=== PATIENT | female | born 1945 | race Caucasian/White ===

== ENCOUNTER 2019-07-27 08:41 | Inpatient (IN) ==
[2019-07-27] MEDS ORDERED: ASPIRIN PO ONE (08:44)
[2019-07-27 09:16] LABS: BASO# 0.01 X1000 (0.0-0.2); BASO% 0.2 % (0.0-0.8); EOS# 0.08 X1000 (0.0-0.7); EOS% 1.6 % (0.0-10.0); HEMATOCRIT 40.4 % (37.0-47.0); HEMOGLOBIN 13.3 g/dL (12.0-16.0); LYMPH# 0.79 X1000 (1.2-3.4); MCH 31.4 PG (27-31); MCHC 32.9 g/dL (33-37); MCV 95.5 FL (81-99); MONO# 0.46 X1000 (0.11-0.59); MONO% 9.3 % (1.7-9.3); MPV 12.3 FL (7.4-10.4); NEUT% 72.9 % (42.2-75.2); PLT 194 X1000 (130-400); RBC 4.23 XMIL (4.2-5.4); WBC 4.94 X1000 (4.8-10.8)
[2019-07-27 09:31] LABS: ALBUMIN 4.3 g/dL (3.5-5.0); CALCIUM 10.1 mg/dL (8.8-10.2); CREATININE 1.3 mg/dL (0.5-0.9); INR 1.37; POTASSIUM 4.1 mmol/L (3.5-5.1); PROTIME 17.6 Seconds (11.0-16.0); TOTAL BILIRUBIN 0.6 mg/dL (0.20-1.00); TOTAL PROTEIN 6.8 g/dL (6.3-8.3)
[2019-07-27 09:32] LABS: PTT 33.1 Seconds (22.3-41.8)
--- NOTE | 2019-07-27 10:35 | Diag Imaging Result Doc PS360 ---
CHEST-2 VIEWS - 07/27/2019 INDICATION: heart racing COMPARISON: 03/28/2015 FINDINGS: Heart size is borderline enlarged. Pulmonary vascularity is normal. No infiltrates or edema. No pneumothorax or pleural effusion. IMPRESSION: Borderline cardiomegaly. Electronically signed by Renny Zhou 07/27/2019 10:33 AM
[2019-07-27] MEDS: ELIQUIS PO SCH ×2 (10:45→20:43)
--- NOTE | 2019-07-27 11:34 | HISTORY AND PHYSICAL ---
CHIEF COMPLAINT: Shortness of breath and palpitations. HISTORY OF PRESENT ILLNESS: Ms. Kennedy is a 73-year-old female who has a history of paroxysmal atrial fibrillation and who woke up at 4 a.m. this morning with dyspnea and palpitations after which she was brought into the emergency room for further evaluation. She is currently comfortable and denies having any other issues. PAST MEDICAL HISTORY: 1. Paroxysmal atrial fibrillation. 2. Hypertension. 3. Dyslipidemia. 4. Hypothyroidism. 5. Obesity. PAST SURGICAL HISTORY: 1. Tonsillectomy. 2. History of embolectomy from right femoral artery after having an ischemic right lower extremity, by Dr. Cody. SOCIAL HISTORY: Patient denies any alcohol or tobacco use. She is retired and lives here in [place]. FAMILY HISTORY: Noncontributory. ALLERGIES: The patient reports to be allergic to bacitracin, neomycin, and polymyxin. CURRENT HOME MEDICATIONS: 1. Apixaban 5 mg orally twice daily. 2. Hydrochlorothiazide 12.5 mg orally once daily. 3. Levothyroxine 88 mcg orally once daily. 4. Lisinopril 10 mg orally once daily. 5. Metoprolol ER 25 mg half tablet orally once daily. REVIEW OF SYSTEMS: A full 14-point review of systems was obtained, that was pretty much the same as already has been explained in the HPI. PHYSICAL EXAMINATION: VITAL SIGNS: Temperature 98 degrees Fahrenheit, pulse 112 per minute, respiratory rate 19 per minute, blood pressure 132/110, pulse oximetry 99% on room air. GENERAL: The patient is alert and oriented x3. She does not appear to be in any acute distress. HEENT: Within normal limits. NECK: Supple, without any thyromegaly. LYMPHATICS: No lymphadenopathy noted in the neck region. CHEST: Chest wall is nontender. CARDIOVASCULAR SYSTEM: First and second heart sounds are audible without any murmurs or gallops. RESPIRATORY SYSTEM: Bilateral lung air entry is good without any rales or rhonchi. GASTROINTESTINAL SYSTEM: Abdomen is soft and nondistended. No viscera are palpable and normal bowel sounds are present. NEUROLOGIC: No focal deficits are present. : Deferred. INTEGUMENTARY: Skin is warm, dry, and without any rash. MUSCULOSKELETAL SYSTEM: No deformities are present. Range of motion in most of the joints somewhat limited secondary to osteoarthritis. DIAGNOSTIC DATA: CBC is nondiagnostic. PT and PTT are also nondiagnostic. Comprehensive metabolic panel showed creatinine of 1.3 and glucose levels of 110. Rest of the comprehensive metabolic panel was found to be nondiagnostic. ProBNP was elevated at 1895 and troponin levels were found to be negative. Magnesium levels were found to be normal at 1.8. TSH was slightly elevated at 6.89. Chest x-ray obtained at the emergency room showed borderline cardiomegaly. IMPRESSION: 1. Paroxysmal atrial fibrillation with rapid ventricular response. 2. Dyspnea secondary to #1. 3. History of hypertension and dyslipidemia, along with hypothyroidism. PLAN: The patient will be admitted to the intensive care unit here at [facility] and will be initiated on IV diltiazem drip. We are going to continue with routine home medications and repeat the cardiac enzymes to rule out acute myocardial ischemic event. We are going to obtain a cardiology consult for further evaluation and provide her supportive care. Further recommendations will be given as per outcome of these measures. cc: Spenser Lopez MD
[2019-07-27] MEDS ORDERED: CARDIZEM ONE (12:57)
[2019-07-27] MEDS: CARDIZEM PO SCH ×3 (13:02→20:43)
[2019-07-27] MEDS ORDERED: CARDIZEM 100 MG/NS 100 MG/100 ML IVPB IV SCH (13:08)
--- NOTE | 2019-07-27 13:50 | EKG Report ---
Test Performed on : 07/27/2019 08:50:00 AM Test Reason : heart racing Blood Pressure : / mmHG Vent. Rate : 131 BPM Atrial Rate : 119 BPM P-R Int : 000 ms QRS Dur : 096 ms QT Int : 324 ms P-R-T Axes : 000 003 -68 degrees QTc Int : 478 ms Atrial fibrillation. with rapid ventricular response. with premature ventricular or aberrantly conduc dionicio complexes. ST & T wave abnormality, consider lateral ischemia Abnormal ECG When compared with ECG of 09-FEB-2017 10:12, No significant change was found Unconfirmed Result
[2019-07-27] MEDS ORDERED: CARDIZEM 125 MG/D5W 125 MG/125 ML IVPB IV SCH (15:00)
[2019-07-27] MEDS: LANOXIN PO SCH ×2 (17:56→22:46)
--- NOTE | 2019-07-27 18:20 | CARDIOLOGY CONSULTATION ---
DATE: 07/27/2019 REQUESTING PHYSICIAN: Dr. Lopez in the hospital service for [facility]. CHIEF COMPLAINT: Palpitations, shortness of breath, and slight chest pain. HISTORY: Ms. Kennedy is a pleasant 73-year-old female who presented to this hospital early in the morning about of 4:00 or 5:00 in the morning with complaints of sudden onset of shortness of breath that woke her up from her sleep associated with palpitations and slight pain on top of the left anterior chest. The patient acknowledged that it felt like her atrial fibrillation acting up, however, this time the shortness of breath and the pain were unusual and she got concerned. She presented to the ER. They did a chest x-ray that showed borderline cardiomegaly. No significant pulmonary congestion. EKG showed atrial fibrillation with rapid response. There are no definite ischemic ST/T changes noted. The first EKG showed a heart rate of 131 beats per minute with PVCs and diffuse ST-T abnormality. The subsequent one done a couple of hours later at 1:12 p.m. shows atrial fibrillation with a better controlled response, still nonspecific ST abnormality. The patient at this time is in the ICU at [facility] and feeling somewhat more comfortably. They had issues accessing her veins in the arms, and she was a little shaky and nervous about it. She gets upset when they have to poke her many times to find an IV. She says that for the past couple of months she has noticed a progressive decline in her functional capacity. On Sunday evening, which was July 25, a friend called her from her sabianism and asked her to help organizing a meal for 30 people that were going to attend a on July 26. She said that she clearly did more than what she normally does, and that day she felt extremely exhausted. She went to bed at 6 p.m. on July 26, very tired. She had not had anything to eat or drink since 3 p.m. She denies feeling nauseous. Denies having cough. Denies having fever. Denies having swelling of the legs or pain in the legs. PAST HISTORY: Positive for paroxysmal atrial fibrillation. First time happened in 2012. Subsequently, she presented to [facility] in March 2015 with pain and pallor involving both legs. At that time, she had suffered bilateral peripheral embolization in both legs from atrial fibrillation. That was successfully resolved by Dr. Eben Cody and Dr. Ramos, who operated on her. They performed exploration of right femoral artery, common and profunda and superficial via right common femoral arteriotomy and external iliac embolectomy and distal superficial and popliteal embolectomy. That took care of the ischemic leg, and since then she has been anticoagulated with Eliquis. The patient had been following with [facility]qu[facility]. However, since Dr. Taylor moved out to [place], she has not seen a quality system manager at least for the past 3 years. She had been under the care of Dr. Morris, and the last time she saw her was 6 months ago. Nevertheless, the patient has been taking her medications. The patient was affected by herpes zoster involving the head and the left eye a couple of years ago, and since then she has been taking acyclovir for it. SURGICAL HISTORY: She had tonsillectomy. She has had the bilateral leg embolectomy in 2014, and she has had also bilateral cataract surgery. FAMILY HISTORY: Father suddenly at age 83, and mother at the age of 56. REVIEW OF SYSTEMS: Basically positive for the fact that she has been feeling increasingly dyspneic for the past couple of months. She does have chronic paroxysmal palpitations. She acknowledges it is her atrial fibrillation, and she does not get excited about it. She has gradually gained weight over the past couple of years. Her weight is up to 232 pounds with a BMI of 34. HOME MEDICATIONS: Listed at the time of this admission included acyclovir 400 mg at bedtime, apixaban 5 mg twice a day, Benadryl 25 mg at bedtime, hydrochlorothiazide 12.5 daily, Synthroid 88 mcg daily, lisinopril 10 mg daily, metoprolol ER 50 mg twice a day. SOCIAL HISTORY: She is a . in the year 1999. She has 2 grown-up children. One of them was present in the room with her. PHYSICAL EXAMINATION: Vital Signs: Blood pressure is 125/88, temperature 98 degrees, pulse 89, respirations 22. Awake, alert, oriented, in no distress. She does not appear to be ill. Well- developed female, no distress. HEENT: Unremarkable. Chest: Sounds clear to auscultation and percussion. Heart: Sounds are irregularly irregular without gallop or murmur. Abdomen: Soft, nontender. Extremities: Show good pulses. No peripheral edema. Neurological: She follows commands. Moves 4 extremities. LABORATORY DATA: Hemoglobin is 13.3, platelet count 194,000. PT is 17.6. INR is 1.37, PTT 33.1. Sodium 142, potassium 4.1, BUN 19, creatinine 1.3. ProBNP level is 1895 pg/mL. Two troponin levels were checked, one at 9 a.m. and the other one at 1:21 p.m.; both are negative. IMPRESSION: 1. Patient who presents with paroxysmal atrial fibrillation, symptomatic with dyspnea. The patient probably has a mild degree of diastolic heart failure based on elevation of pro BNP. 2. History of hypertension. 3. 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 4. Obesity. 5. H/O Peripheral arterial embolization in the past. 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 RECOMMENDATION: At this time, we will try to work on controlling her heart rate with digoxin, Cardizem, and beta blockers. We will keep her on Eliquis. We will get an echocardiogram. After she converts, we will arrange for a follow-up at the office. We will obtain an outpatient stress test. At this time, no further intervention appears to be necessary. We will see how she does overnight. Because she has a very difficult venous access and her heart rate is controlled, we will forego putting an IV for the time being unless her heart rate really jumps into the 100s or greater. FOLLOW-UP: We will follow the patient up during this admission. cc: MD TAWANA Aburto
[2019-07-27] MEDS ORDERED: TYLENOL PO PRN (18:38)
[2019-07-27 20:38] LABS: BILIRUBIN URINE NEGATIVE (NEGATIVE); BLOOD URINE NEGATIVE (NEGATIVE); CLARITY CLEAR (CLEAR); COLOR YELLOW; GLUCOSE URINE NEGATIVE (NEGATIVE); KETONE URINE NEGATIVE (NEGATIVE); LEUKOCYTES URINE NEGATIVE (NEGATIVE); NITRITE URINE NEGATIVE (NEGATIVE); PROTEIN URINE NEGATIVE (NEGATIVE); UROBILINOGEN URINE NORMAL
[2019-07-27 20:39] LABS: URINE BACTERIA NEGATIVE /HFP; URINE CAST NONE SEEN /LPF; URINE CRYSTAL NONE SEEN /HPF; URINE EPITHELIAL CELLS >10 /HPF (<10); URINE RBC <10 /HPF (<10); URINE SOURCE CLEAN CATCH; URINE WBC <10 /HPF (<10); URINE YEAST NONE SEEN /HPF
[2019-07-27] MEDS: TOPROL XL PO SCH (20:43)
[2019-07-28] MEDS: CARDIZEM PO SCH ×4 (06:12→19:56)
[2019-07-28] MEDS: LANOXIN PO SCH (06:13)
[2019-07-28] MEDS: PATIENT'S OWN MED PO SCH (06:13)
--- NOTE | 2019-07-28 06:26 | EKG Report ---
Test Performed on : 07/28/2019 05:52:12 AM Test Reason : Afib with RVR Blood Pressure : / mmHG Vent. Rate : 077 BPM Atrial Rate : 094 BPM P-R Int : 000 ms QRS Dur : 092 ms QT Int : 416 ms P-R-T Axes : 000 013 093 degrees QTc Int : 470 ms Atrial fibrillation. Abnormal QRS-T angle, consider primary T wave abnormality Abnormal ECG When compared with ECG of 27-JUL-2019 13:12, (Unconfirmed) Nonspecific T wave abnormality no longer evident in Inferior leads Nonspecific T wave abnormality, improved in Lateral leads Unconfirmed Result
[2019-07-28 06:33] LABS: HEMATOCRIT 39.2 % (37.0-47.0); HEMOGLOBIN 12.3 g/dL (12.0-16.0); MCH 30.5 PG (27-31); MCHC 31.4 g/dL (33-37); MCV 97.3 FL (81-99); MPV 12.8 FL (7.4-10.4); RBC 4.03 XMIL (4.2-5.4); WBC 3.58 X1000 (4.8-10.8)
[2019-07-28 07:04] LABS: CREATININE 1.2 mg/dL (0.5-0.9); MAGNESIUM 1.8 mg/dL (1.5-2.7)
--- NOTE | 2019-07-28 07:53 | EKG Report ---
Test Performed on : 07/27/2019 1:12:49 PM Test Reason : ER Blood Pressure : / mmHG Vent. Rate : 111 BPM Atrial Rate : 131 BPM P-R Int : 000 ms QRS Dur : 094 ms QT Int : 346 ms P-R-T Axes : 000 -09 125 degrees QTc Int : 470 ms Atrial fibrillation. with rapid ventricular response. Possible Anterior infarct , age undetermined Abnormal ECG When compared with ECG of 27-JUL-2019 08:50, (Unconfirmed) No significant change was found Unconfirmed Result
[2019-07-28] MEDS ORDERED: ZOVIRAX PO SCH (09:00)
[2019-07-28] MEDS: HYDROCHLOROTHIAZIDE PO SCH (10:04)
[2019-07-28] MEDS: ELIQUIS PO SCH ×2 (10:04→19:59)
[2019-07-28] MEDS: TOPROL XL PO SCH ×2 (10:04→20:00)
[2019-07-28] MEDS: PRINIVIL PO SCH (10:04)
[2019-07-28] MEDS: NS 1,000 ML IV SCH ×2 (19:54→19:55)
--- NOTE | 2019-07-28 21:49 | PROGRESS NOTE ---
DATE: 07/28/2019 SUBJECTIVE: Patient notes that she is feeling a lot better. She has had no palpitations. She is currently eating breakfast. Denies any shortness of breath. PHYSICAL: Temperature 97.4, pulse 62, BP 107/75.General: Patient is awake, alert, currently in no distress. HEENT: Normocephalic. Neck: Supple. CV: Irregular rate with atrial fibrillation. Chest: Clear, nonlabored. Abdomen: Soft. Extremities: Moves all extremities. ASSESSMENT: 1. Paroxysmal atrial fibrillation. She had rapid ventricular response. Her medications have been adjusted. Currently she is off the Cardizem drip and her rate is controlled. We are going to move her to the floor allow her to ambulate and see how she does. Hopefully she can discharge home tomorrow if she tolerates ambulation. 2. Hypothyroidism. Going to recheck her TSH and if elevated should consider treatment. 3. Hypertension. 4. Dyslipidemia. cc: Samson Warren MD
[2019-07-29] MEDS: CARDIZEM PO SCH ×3 (04:34→10:23)
[2019-07-29] MEDS: PATIENT'S OWN MED PO SCH ×2 (05:54→09:05)
--- NOTE | 2019-07-29 07:20 | ECHO REPORT ---
ORDER DATE: 07/28/2019 MEASUREMENTS: Left ventricular internal diameter in diastole 5.5, septal thickness 1.3, posterior wall thickness 0.7, aortic root 2.6, left atrium 4.8. SUMMARY: 1. Technically difficult study due to limited acoustic window quality. 2. Aortic valve is trileaflet and opens normally on 2-dimensional images. Peak gradient across the aortic valve is less than 10 mmHg. Focal thickening and sclerosis of posterior mitral leaflet demonstrated. Mitral valve opening is adequate. There is moderate mitral regurgitation. Tricuspid and pulmonic valves are without evidence of structural abnormality, with [id number] tricuspid regurgitation and trace pulmonic insufficiency. The estimated systolic PA pressure by Doppler is 40 mmHg, suggesting mild pulmonary hypertension. The aortic root is normal in size. 3. Normal left ventricular dimensions suggested on 2-dimensional images. Estimated left ventricular ejection fraction is approximately 40%. Hypokinesis of the basal and mid anteroseptal region of the left ventricle is demonstrated. Moderate biatrial enlargement is demonstrated. Right ventricle is normal in size with grossly preserved right ventricular systolic function. 4. No pericardial effusion. 5. The appearance of the inferior vena cava suggests normal central venous pressure. 6. Atrial fibrillation during study. cc: MD Tal Arceo MD
[2019-07-29] MEDS: NS 1,000 ML IV SCH (09:05)
[2019-07-29] MEDS: TOPROL XL PO SCH (09:05)
[2019-07-29] MEDS: PRINIVIL PO SCH (09:05)
[2019-07-29] MEDS: HYDROCHLOROTHIAZIDE PO SCH (09:06)
[2019-07-29] MEDS: ELIQUIS PO SCH (09:06)
[2019-07-29 09:54] LABS: HEMATOCRIT 40.4 % (37.0-47.0); HEMOGLOBIN 12.9 g/dL (12.0-16.0); MCH 30.5 PG (27-31); MCHC 31.9 g/dL (33-37); MCV 95.5 FL (81-99); MPV 12.6 FL (7.4-10.4); RBC 4.23 XMIL (4.2-5.4); RDW 13.8 % (11.5-14.5); WBC 3.92 X1000 (4.8-10.8)
[2019-07-29 11:02] LABS: ALBUMIN 4.1 g/dL (3.5-5.0); CALCIUM 10.3 mg/dL (8.8-10.2); CREATININE 1.1 mg/dL (0.5-0.9); POTASSIUM 4.1 mmol/L (3.5-5.1); TOTAL BILIRUBIN 0.7 mg/dL (0.20-1.00); TOTAL PROTEIN 6.5 g/dL (6.3-8.3)
[2019-07-29 12:03] VITALS: BP 111/77
--- NOTE | 2019-07-30 09:05 | DISCHARGE SUMMARY ---
ADMISSION DATE: 07/27/2019 DISCHARGE DATE: 07/29/2019 HOSPITAL COURSE: The patient is seen the day of discharge. She is very well. She is ambulating without difficulty. She is still sinus rhythm. No major complaints. She will be discharged today on Cardizem. She is already on Eliquis, and we will set her up to follow up with Dr. Coronado. They recommended an outpatient stress test, so we will most likely need to set that up too because she does have some wall motion abnormalities on her echo release hypokinesis. EF is on the bare low normal of depressed ejection fraction. This is a djuu-ve-flsy encounter note with HARSHIL Austin. cc: Renaldo Restrepo MD
--- NOTE | 2019-07-30 09:44 | DISCHARGE SUMMARY ---
ADMISSION DATE: 07/27/2019 DISCHARGE DATE: 07/29/2019 PRIMARY CARE PHYSICIAN: None. ADMISSION DIAGNOSES: 1. Paroxysmal atrial fibrillation with rapid ventricular response. 2. Dyspnea secondary to #1. 3. History of hypertension and dyslipidemia along with hypothyroidism. DISCHARGE DIAGNOSES: 1. Paroxysmal atrial fibrillation now rate controlled. 2. Hypothyroidism. 3. Hypertension. 4. Dyslipidemia. SUMMARY OF FINDINGS: This is a 73-year-old female who has a history of paroxysmal atrial fibrillation, woke up around 4 a.m. on the morning of arrival with dyspnea and palpitations. When she got to the emergency room, she was noted to have an EKG with atrial fibrillation with RVR at 131, was admitted to the intensive care unit on a Cardizem drip initially. We consulted Cardiology. We did an echocardiogram. Her estimated ejection fraction was 40%. She was weaned off of the Cardizem drip and was placed on p.o. Cardizem and was transferred out to the floor. She has done well has remained rate controlled and it is now felt that she could safely be discharged home. DISCHARGE MEDICATIONS: Include Zovirax 400 mg p.o. at bedtime, Eliquis 5 mg p.o. b.i.d., Cardizem CD 120 mg p.o. daily, Benadryl 25 mg p.o. at bedtime, hydrochlorothiazide 12.5 mg p.o. daily, Synthroid 88 mcg p.o. daily, lisinopril 10 mg p.o. daily and Metoprolol 50 mg p.o. b.i.d. FOLLOWUP: She will have a followup with Dr. Coronado, Cardiology, on 09/01/2019 at 11 a.m. DISCHARGE INSTRUCTIONS: All discharge instructions were reviewed with the patient and she verbalized understanding. TIME SPENT: This is a 35 minute discharge. Dictated by HARSHIL Austin for Renaldo Restrepo MD cc: HARSHIL Austin MD Luis N. Villanueva, MD
--- NOTE | 2019-08-12 01:04 | PROVIDER DOCUMENTATION ---
This chart was entered by Destinee Jacinto Scribe, acting as scribe for Ricardo Kearns MD. HPI-Cardiac General - General Chief Complaint: Palpitations Stated Complaint: PALPITATIONS Time Seen by Provider: 07/27/19 09:12 Source: patient Allergies/Adverse Reactions: Patient Allergies Allergy/AdvReac Type Severity Reaction Status Date / Time bacitracin AdvReac RASH Verified 07/27/19 09:11 [From Neosporin ([id number])] bacitracin zinc * AdvReac RASH Verified 07/27/19 09:11 [From Neosporin ([id number])] neomycin sulfate * AdvReac RASH Verified 07/27/19 09:11 [From Neosporin ([id number])] polymyxin B AdvReac RASH Verified 07/27/19 09:11 [From Neosporin ([id number])] fillers Allergy Unknown Uncoded 07/27/19 10:57 Home Medications: Home Medication List Medication Instructions Recorded Confirmed Last Taken Type Levothyroxine [Synthroid] 88 microgm PO DAILY 09/28/13 07/27/19 07/27/19 07:15 History Diphenhydramine [Benadryl] 25 mg PO QHS 03/28/15 07/27/19 07/26/19 History Lisinopril 10 mg PO DAILY #30 04/08/15 07/27/19 07/27/19 07:15 Rx Apixaban [Eliquis] 5 mg PO BID 02/09/17 07/27/19 07/27/19 07:15 History 0715 Hydrochlorothiazide 12.5 mg PO DAILY 02/09/17 07/27/19 07/27/19 07:15 History Acyclovir [Zovirax] 400 mg PO QHS 07/27/19 07/27/19 07/26/19 History Metoprolol Succinate E.r. [Toprol 50 mg PO BID 07/27/19 07/27/19 07/27/19 07:15 History Xl] Diltiazem C.d. 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 The patient states she has had episodes of heart pounding with afib previously but this is more of a flutter. She also states she has been excessively tired the past six months having to rest frequen tly with daily activities or simply walking. Quality of Pain: reports: tightness Onset/Duration: this morning (0400) Timing: still present Context/Activities at Onset: reports: sleep Modifying Factors: improves with: nothing Palpitation Quality: irregular History of arrythmia: reports: A-Fib Recent use of:: reports: no stimulants Associated Symptoms: reports: shortness of breath. denies: nausea, vomiting Similar Symptoms Previously?: Yes Recently Seen Here or By Another Healthcare Provider: No Review of Systems - Adult - REVIEW OF SYSTEMS - ADULT Constitutional: reports: fatique. denies: chills, fever Eyes: reports: no symptoms reported Ears, Nose, Mouth & Throat: reports: no symptoms reported Cardiovascular: reports: chest pain (tightness), palpitations, other (history of afib). denies: syncope Respiratory: reports: dyspnea on exertion, shortness of breath. denies: hemoptysis, wheezing Gastrointestinal: denies: diarrhea, nausea, vomiting Genitourinary: reports: no symptoms reported Musculoskeletal: reports: no symptoms reported Integumentary: reports: no symptoms reported Neurological: reports: no symptoms reported Psychiatric: reports: no symptoms reported Endocrine: reports: no symptoms reported Hematologic/Lymphatic: reports: no symptoms reported Allergic/Immunologic: reports: no symptoms reported All Other Systems: Reviewed and Negative Past History - Adult - PAST MEDICAL HISTORY-ADULT Review of Records: reports: Old Records Reviewed, Nursing Assessment Review, Medications Reviewed Major Childhood Illnesses: reports: denies history Cardiovascular: reports: A-Fib, HTN, hyperlipidemia Respiratory: reports: denies history Gastrointestinal: reports: GERD Obstetrical/Gynecological: reports: denies history Genitourinary: reports: denies history Musculoskeletal: reports: denies history Neurological: reports: denies history Endocrine/Immune: reports: cancer (skin), thyroid disorder Other Conditions: reports: denies history - PRIOR SURGERIES/PROCEDURES Surgical/Procedure History: reports: none - IMMUNIZATION STATUS Childhood Immunizations: See Nurse Assessment Flu Vaccine: See Nurse Assessment - FAMILY HISTORY Family History: reviewed, not pertinent - SOCIAL HISTORY Smoking: non-smoker Physical Exam-General - PHYSICAL EXAM-ADULT Initial Vital Signs Reviewed: Yes - CONSTITUTIONAL General Appearance: alert, no apparent distress - HEAD, EARS, NOSE, MOUTH & THROAT HENMT: normocephalic/atraumatic - NECK Neck: full range of motion, supple - RESPIRATORY Respiratory: lungs clear, normal breath sounds. negative: rales, rhonchi, wheezing - CARDIOVASCULAR Cardiovascular: no gallop, tachycardia, other (bilateral leg edema) - MUSCULOSKELETAL Back Exam: other. negative: swelling Extremity: pedal edema (bilateral). negative: pulse deficit - SKIN Integumentary: normal color, warm/dry. negative: diaphoresis - NEUROLOGIC Neurologic: grossly normal - HEART Score HEART Score: History: Slightly Suspicious HEART Score: ECG: Non-Specific Repolarization Disturbance/LBBB/PM HEART Score: Age: > or = 65 Years HEART Score: Risk Factors for Atherosclerotic Disease: 1 or 2 Risk Factors HEART Score: Troponin: < or = Normal Limit Total HEART Score:: 4 Progress - PLAN OF CARE/RESULTS Progress/Plan/Lab Results: Orders Category Date Time Status Admit - [facility] Routine [id number] 07/27/19 10:44 Active Cardiac Monitoring DIRECTED Care 07/27/19 08:44 Completed Nursing [Misc. NRSG Communication Order] DIRECTED Care 07/27/19 12:26 Completed Nursing- MD Consult Request ROUTINE Care 07/27/19 13:08 Completed Saline Loc NOW Care 07/27/19 08:44 Completed Physician/Provider Consults Routine Cons 07/27/19 13:08 Ordered CHEST-2 VIEWS [RAD] Stat Exams 07/27/19 08:44 Completed CBC WITH ELECTRONIC DIFF [HEME] Stat Lab 07/27/19 09:00 Completed CK PROFILE [SP CHEM] Stat Lab 07/27/19 09:00 Completed COMPREHENSIVE METABOLIC PANEL [CHEM] Stat Lab 07/27/19 09:00 Completed MAGNESIUM [CHEM] Stat Lab 07/27/19 09:10 Completed PRO B-NATRIURETIC PEPTIDE Stat Lab 07/27/19 09:00 Completed PROTIME WITH INR [COAG] Stat Lab 07/27/19 09:00 Completed PTT [COAG] Stat Lab 07/27/19 09:00 Completed TROPONIN T Stat Lab 07/27/19 09:00 Completed TROPONIN T Urgent Lab 07/27/19 13:21 Completed TSH Stat Lab 07/27/19 09:10 Completed 0.9% Sodium Chloride Inj [Ns] 1,000 ml Med 07/27/19 13:08 Discontinued IV 75 mls/hr Acyclovir [Zovirax] Med 07/28/19 09:00 Discontinued 400 mg PO DAILY Apixaban [Eliquis] Med 07/27/19 10:45 Discontinued 5 mg PO BID Aspirin Med 07/27/19 08:44 Discontinued 325 mg PO NOW ONE Diltiazem 100 mg/Ns [Cardizem 100 mg/Ns] Med 07/27/19 13:08 Discontinued 100 mg in 100 ml IV As Directed mls/hr Diltiazem [Cardizem] Med 07/27/19 12:57 Discontinued 30 mg .ROUTE .STK-MED ONE Diltiazem [Cardizem] Med 07/27/19 14:00 Discontinued 30 mg PO Q6HR Hydrochlorothiazide Med 07/28/19 09:00 Discontinued 12.5 mg PO DAILY LISINOpril [Prinivil] Med 07/28/19 09:00 Discontinued 10 mg PO DAILY Metoprolol Succinate E.r. [Toprol Xl] Med 07/27/19 21:00 Discontinued 50 mg PO BID Patient's Own Med Med 07/28/19 07:00 Discontinued 1 each PO DAILY@0700 EKG [EKG] Routine Ther 07/28/19 06:00 Draft EKG [EKG] Stat Ther 07/27/19 08:44 Draft Transfer/Admit Order [TRANSFER] Routine Transfer 07/27/19 10:47 Completed Result Diagrams: 07/29/19 09:00 07/29/19 09:00 - EKG 1 Time of EKG reading by physician:: 08:50 EKG Read and Signed by:: Ricardo Kearns EKG Interpretation (*Must complete 3 of following elements*): Abnormal Rate: 131 Rhythm: afib w/ RVR with premature ventricular or aberrantly conducted complexes Comments: ST and T wave abnormality consider lateral ischemia 2 Time of EKG reading by physician:: 13:12 EKG Read and Signed by:: Ricardo Kearns EKG Interpretation (*Must complete 3 of following elements*): Abnormal Rate: 111 Rhythm: afib w/RVR Comments: possible anterior infarct age undetermined - XRAY 1 XRAY Study: Chest (CHEST-2 VIEWS - 07/27/2019 INDICATION: heart racing COMPARISON: 03/28/2015 FINDINGS: Heart size is borderline enlarged. Pulmonary vascularity is normal. No infiltrates or edema. No pneumothorax or pleural effusion. IMPRESSION: Borderline cardiomegaly. Electronically signed by Renny Zhou 07/27/2019 10:33 AM) - CONSULTS/PCP/HOSPITALIST Notification #1 *Consult/PCP/Hospitalist*: Dr. Lopez Time Discussed: 10:15 Reason/Comments: heart failure Consult Disposition: Admit Departure - Departure Date of Disposition Decision: 07/27/19 Time of Disposition Decision: 10:35 DIAGNOSIS: Paroxysmal A-fib, CHF (congestive heart failure) Disposition: ADMITTED INPATIENT 09 Certified Medical Emergency: Urgent Condition: Stable - Critical Care Note This patient required my direct & personal management of CC.: No Attestation - Physician/ SHARATH Attestation Patient care was provided by Advanced Practice Provider:: No The physician spent face to face time with patient:: Yes Advanced Practice Provider documentation review:: Supervising physician onsite and consulted in the evaluation and care of this patient. The physician did have a face to face encounter with the patient. This chart was documented by the indicated scribe, (Destinee Jacinto, Apoorva) and accurately reflects the services I performed and decisions made by me, Ricardo Kearns MD, as attested by the provider's signature.
== END 2019-07-29 13:45 | disposition home or self-care (01) | DRG 309 ==
LOC: P.ED 08:41 → P.MEDSURG 13:41 → SUATTDRO 13:41 → P.ICU 15:44 → P.MEDSURG 07-28 14:45
PROVIDERS: ATTEND Internal Medicine